=== PATIENT | male | born 1970 ===

== ENCOUNTER 2020-07-27 13:47 | Emergency (ER) | payer SELFPAY ==
[2020-07-27 14:12] VITALS: BP 103/69
== END 2020-07-27 18:05 | disposition left against medical advice (07) ==
LOC: ED 13:47
DX: S09.93XA Unspecified injury of face, initial encounter (principal); Z53.21 Procedure and treatment not carried out due to patient leaving prior to being seen by health care provider; X58.XXXA Exposure to other specified factors, initial encounter; Y93.89 Activity, other specified; Y92.89 Other specified places as the place of occurrence of the external cause; Y99.8 Other external cause status